=== PATIENT | male | born 1945 ===

== ENCOUNTER 2016-07-07 08:25 | Day surgery (SDC) | payer OTHER ==
[2016-06-19 15:04] VITALS: PULSE 88
[2016-06-27 10:48] VITALS: BMI 34.0
[2016-07-07] MEDS ORDERED: Midazolam 2 MG/2 ML VIAL ONE (10:24)
[2016-07-07] MEDS ORDERED: Propofol 10 mg/ml Inj (20 ML) ONE (10:24)
[2016-07-07] MEDS ORDERED: Lidocaine 2% Jelly (Uro-Jet) ONE (11:22)
[2016-07-07] MEDS ORDERED: Iohexol 240 (50 ml) ONE (11:22)
[2016-07-07] MEDS ORDERED: cefTRIAXone IV 1 gm in Dextros 50 ML IVPB ONE (11:22)
--- NOTE | 2016-07-07 12:09 | PCM.SURG1 ---
Surgeon's Initial Post Op Note - Surgeon's Notes Surgeon: Greg LOUIS Protein Specialist: NONE Pre-Operative Diagnosis: HX OF BLADDER TUMOR Operative Findings: ABNORMAL BLADDER MUCOSA Post-Operative Diagnosis: SAME Operation Performed: CYSTO, BILAT RTG PYELOGRAM. BLADDER BX'S AND FULG,. BN BX AND FULG Specimen/Specimens Removed: URINE. BLADDER BX'S Estimated Blood Loss: EBL {In ML}: 0 Blood Products Given: N/A Post-Op Condition: Good Date of Surgery/Procedure: 07/07/16 Time of Surgery/Procedure: 12:09
[2016-07-07] MEDS ORDERED: HYDROmorphone 0.5 mg/0.5 ml ISec IVP PRN (12:11)
[2016-07-07] MEDS ORDERED: Lactated Ringer's 1,000 ML IV SCH (12:15)
[2016-07-07 12:50] VITALS: O2SAT 100
[2016-07-07 13:32] VITALS: BP 142/70; PULSE 72; RESP 14; TEMP 98.7
--- NOTE | 2016-07-07 15:32 | RAD ---
PROCEDURE: Bilateral retrograde study HISTORY: HX. OF BLADDER TUMOR COMPARISON: None TECHNIQUE: Standard protocol for this study/examination. FINDINGS: Unremarkable collecting systems and ureters as visualized. Incidental finding(s): Right upper quadrant calculi likely gallstones. IMPRESSION: No significant or acute findings to account for/ related to the clinical presentation.
--- NOTE | 2016-07-09 22:05 | OP ---
PROCEDURE DATE: 07/07/2016 PREOPERATIVE DIAGNOSIS: History of bladder tumor. POSTOPERATIVE DIAGNOSES: History of bladder tumor. Abnormal bladder mucosa. PROCEDURE: Cystoscopy. Bilateral retrograde pyelogram. Multiple bladder biopsies and fulguration. Bladder neck biopsy and fulguration. OPERATING SURGEON: Dr. Ruthie Lujan DESCRIPTION OF PROCEDURE: As follows: The patient received perioperative antibiotics. Anesthesia w as administered by the anesthesiologist. The patient was placed in lithotomy position. Genitalia prepped and draped sterilely. Procedure was performed under video endoscopic control. A 22-Italian cystoscope sheath was introduced under direct vision. Urethra, prostate and bladder were inspected with 30-degree and 70-degree lenses. FINDINGS: There was no stricture of the anterior urethra. There was evidence of predominantly later al lobe prostatic hypertrophy. There was small hypertrophy of the prostate at the bladder neck. The bladder was noted to be mildly trabeculated. There was no bladder stone. There was no bladder diverticulum. There was abnormal mucosa located on the anterior wall at the midline and to the left of the midline in the area of the dome. This mucosa was slightly yellowish and slightly raised. There was no exoph ytic tumor. There were no papillary lesions. There is granularity of the mucosa. Multiple cold cup biopsies were obtained from the anterior wall ____ mucosa. Biopsies were obtained from the anterior wall as well as from the left anterior wall. Fulguration was performed with electr ocautery for hemostasis. Further biopsies were obtained from the trigone and the bladder neck and the posterior wall. Fulgura tion was performed with ball electrode and electrocautery for hemostasis. The biopsies of the posterior wall and trigone were of normal looking mucosa. There was slightly erythematous mucosa with mild contact bleeding of the mucosa located at the bladde r neck. This area was biopsied as well. Fulguration was performed with ball electrode. Hemostasis was complete. The bladder was reinspected with 70-degree lens and confirmed above findings. Prior to the biopsies, occlusive tip retrograde ureteropyelogram was performed. Iodinated contrast d ye was instilled via cone-tipped catheter into each ureteral orifice. Radiographs were obtained. There was no evidence of filling defect or obstruction within the ureters or collecting systems. Pos t-drainage film confirmed the above findings. There was good drainage noted on the post-drainage nakita m. The bladder was then drained. Cystoscope and sheath were removed. Ahn catheter was inserted. Bladder drainage was clear. Rectal examination/bimanual examination/exam under anesthesia was performed. There was evidence of p rostatic hypertrophy. Prostate was supple and smooth. There was no abnormal mass fixation or indura tion noted on bimanual examination. The patient tolerated the procedure without complication. The patient was returned to the supine pos ition. The patient was transferred to the recovery room in satisfactory condition. Ruthie Lujan MD cc: [id number] TT: 07/09/2016 22:05:11 sn
== END 2016-07-07 14:30 | disposition home or self-care (01) ==
LOC: C.SDS 08:25 → MERGE 10:30 → C.SDS 14:30
PROVIDERS: ATTEND Urology
DX: C67.3 Malignant neoplasm of anterior wall of bladder (principal); N40.1 Benign prostatic hyperplasia with lower urinary tract symptoms; N30.80 Other cystitis without hematuria
CPT/HCPCS: 52214; 74420; 87086; 88104; 88305; J0696; Q9966

== ENCOUNTER 2016-10-23 07:06 | Day surgery (SDC) | payer OTHER ==
[2016-06-19 15:04] VITALS: PULSE 88
[2016-10-23 07:20] VITALS: BMI 37.5
[2016-10-23] MEDS ORDERED: Lidocaine 2% Jelly (Uro-Jet) ONE (07:26)
[2016-10-23] MEDS ORDERED: Lactated Ringer's 500 ML IV ONE ×4 (07:33→10:00)
[2016-10-23] MEDS: cefTRIAXone IV 1 gm in Dextros 50 ML IVPB ONE ×2 (07:34→08:00)
[2016-10-23] MEDS ORDERED: Iohexol 240 (50 ml) ONE (07:45)
[2016-10-23] MEDS ORDERED: Propofol 10 mg/ml Inj (20 ML) ONE (07:58)
[2016-10-23 08:06] LABS: HEMOGLOBIN 12.3 g/dL (12.0-18.0)
[2016-10-23 08:09] LABS: INR 1.1; PROTHROMBIN TIME 12.8 SECONDS (9.7-12.2)
[2016-10-23] MEDS ORDERED: Esmolol 100 mg/10ml Inj IV ONE (08:44)
[2016-10-23] MEDS: HYDROmorphone 0.5 mg/0.5 ml ISec IVP PRN ×2 (08:52→09:18)
--- NOTE | 2016-10-23 08:58 | PCM.SURG1 ---
Surgeon's Initial Post Op Note - Surgeon's Notes Surgeon: roldan ravi Shoemaker Custom: none Type of Anesthesia: General LMA Pre-Operative Diagnosis: hx of bladder cancer Operative Findings: abnormal bladder mucosa Post-Operative Diagnosis: same Operation Performed: cysto,. bilat rtg pyelogram. bladder bx's and fulg. eua Specimen/Specimens Removed: urine, bladder bx's Estimated Blood Loss: EBL {In ML}: 0 Blood Products Given: N/A Date of Surgery/Procedure: 10/23/16 Time of Surgery/Procedure: 08:45
[2016-10-23 10:26] VITALS: BP 148/62; PULSE 101; RESP 20; TEMP 97.8; O2SAT 99
--- NOTE | 2016-10-23 12:09 | RAD ---
HISTORY: BLADDER TUMOR COMPARISON: No prior. FINDINGS: BOWEL: Normal. No obstruction. No free air. BONES: Constipation without fecal impaction or obstruction. OTHER FINDINGS: Calcifications right upper quadrant perhaps cholelithiasis. IMPRESSION: No acute findings related to/accounting for the clinical presentation.
[2016-10-23 12:13] LABS: SQUAMOUS EPITHIAL < 1 /hpf (0-5); URINE BILIRUBIN NEGATIVE (NEGATIVE); URINE BLOOD 1+ (NEGATIVE); URINE CLARITY Clear (Clear); URINE COLOR Straw (YELLOW); URINE GLUCOSE (UA) NORMAL (Normal); URINE LEUKOCYTE ESTERASE NEG Leu/uL (Negative); URINE NITRATE NEGATIVE (NEGATIVE); URINE PROTEIN NEGATIVE (NEGATIVE); URINE UROBILINOGEN NORMAL mg/dL (0.2-1.0)
--- NOTE | 2016-10-23 12:17 | RAD ---
PROCEDURE: Intraoperative Fluoroscopy. HISTORY: BLADDER TUMOR FINDINGS: Fluoroscopic assistance was provided for bilateral retrograde. Please from the current procedure: 9.0. Total fluoroscopic time (continuous mode) utilized during the procedure: 10.5 seconds.
--- NOTE | 2016-10-24 20:51 | OP ---
PROCEDURE DATE: 10/23/2016 PREOPERATIVE DIAGNOSIS: History of bladder carcinoma. POSTOPERATIVE DIAGNOSES: History of bladder carcinoma. Abnormal bladder mucosa. PROCEDURES: Cystoscopy. Bilateral retrograde pyelogram. Multiple bladder biopsies and fulguration. Exam under anesthesia. OPERATING SURGEON: Ruthie Lujan MD DESCRIPTION OF PROCEDURE: The patient received perioperative antibiotics. The patient was placed in lithotomy position. Anesthesia was provided by the anesthesiologist. A 22-[place] cystoscope sheath was introduced under direct vision. Urethra, prostate, and bladder were inspected with 30 degree and 70 degree lenses. FINDINGS: There was no stricture in the anterior urethra. There was evidence of lateral lobe prostatic hypertrophy, which was occlusive. There were no mucosal lesions within the urethra of the prostate. There was no bladder neck contracture. There was noted to be moderate bladder trabeculation. There was no bladder stone. The ureteral orifices were in normal position and shape. There are multiple areas of abnormal mucosa. Some of the areas were reddened and raised, although not papillary. Some of the areas were of an orange-pink color and granular and slightly raised. Occlusive tip retrograde ureteropyelogram was performed. Iodinated contrast *------* into ureteral orifice. The kidneys and ureters were viewed sequentially. Findings on retrograde pyelogram reveals no evidence of filling defect or obstruction within the uterus or collecting system. There was good drainage noted on post drainage film. The area of the abnormal mucosa were biopsied using Nikita biopsy forceps. Biopsies were obtained from the posterior wall as well as from the anterior wall as well as from the left anterior wall. *------* sent back for urologic examination and culture. Fulguration was performed with Ball electrode and electrocautery. Hemostasis was complete. The bladder was inspected with 70-degree lens to confirm the above findings. There was no residual mucosal lesion. Fulguration was performed for both hemostasis as well as possible tumor control. The bladder was then drained, cystoscope sheath was removed. Ahn catheter was inserted. Bladder drainage was clear. Exam under anesthesia was performed. There was no abnormal pelvic mass fixation or induration. Prostate was smooth and firm approximately 30 mL in size without fixation, induration, or nodularity. The patient tolerated the procedure without complication. Ruthie Lujan MD [facility] # [id number]
== END 2016-10-23 11:30 | disposition home or self-care (01) ==
LOC: C.SDS 07:06
PROVIDERS: ATTEND Urology
DX: N30.80 Other cystitis without hematuria (principal); Z85.51 Personal history of malignant neoplasm of bladder
CPT/HCPCS: 36415; 52204; 74000; 76000; 81001; 85014; 85018; 85610; 87086; 88104; 88305; C1758; J0696; J1170; J7120

== ENCOUNTER 2016-12-13 08:03 | Emergency (ER) | payer OTHER ==
[2016-12-13 08:03] VITALS: PULSE 88; BMI 37.5
[2016-12-13 08:28] VITALS: BP 133/83; PULSE 83; RESP 20; TEMP 98.2; O2SAT 98
[2016-12-13 09:41] LABS: BASO # 0.1 K/uL (0.0-0.2); BASO % 0.2 % (0.0-2.0); EOS # 0.1 K/uL (0.0-0.7); EOS % 0.3 % (0.0-4.0); HEMATOCRIT 37.5 % (35.0-51.0); LYMPH # 1.4 K/uL (1.0-4.3); LYMPH % 5.9 % (20.0-40.0); MEAN CELL VOLUME 83.2 fL (80.0-94.0); MEAN CORPUSCULAR HGB CONC 33.6 g/dL (33.0-37.0); MEAN PLATELET VOLUME 7.1 fL (7.2-11.7); MONO % 4.4 % (0.0-10.0); PLATELET COUNT 142 K/uL (130-400); RED CELL DISTRIBUTION WIDTH 17.2 % (11.5-14.5)
--- NOTE | 2016-12-13 09:46 | C.PDOC ---
History Of Present Illness 71 y/o male, with PMHx of bladder, esophageal ,and stomach CA, is sent to ED by Dr. Ruthie Lujan for evaluation of hematuria for the last 2 days. Note last chemotherapy was 2 days ago, pt has chemo every other week. Otherwise, denies abdominal pain, n/v/d, back pain, or fever. Time Seen by Provider: 12/13/16 08:11 Chief Complaint (Nursing): Male Genitourinary History Per: Patient History/Exam Limitations: no limitations Onset/Duration Of Symptoms: Days (2) Current Symptoms Are (Timing): Still Present Associated Symptoms: Urinary Symptoms. denies: Fever, Chills, Nausea, Vomiting , Diarrhea, Back Pain, Chest Pain Alleviating Factors: None Recent travel outside of the [place]: No Additional History Per: Patient Past Medical History Reviewed: Historical Data, Nursing Documentation, Vital Signs Vital Signs: Last Vital Signs Temp 98.2 F 12/13/16 08:19 Pulse 83 12/13/16 08:19 Resp 20 12/13/16 08:19 BP 133/83 12/13/16 08:19 Pulse Ox 98 12/13/16 16:52 - Medical History PMH: Atrial Fibrillation, Back Problems, Cardia Arrhythmia (as per pt:irregular heartbeats), HTN, Hypercholesterolemia Denies: Chronic Kidney Disease Surgical History: Endoscopy Denies: Pacemaker - [facility] Procedures DX ULTRASOUND-HEAD/NECK (09/28/14) ENTERAL INFUSION OF CONCENTRATED NUT. SUBSTANCES (11/09/14) ESOPHAGOGASTRODUODENOSCOPY [EGD] W/CLOSED BIOPSY (09/11/14) INJECT CA CHEMOTHER NEC (11/09/14) INJECT/INFUSE NEC (05/09/05) INSERTION OF TOTALLY IMPLANTABLE VASC ACCESS DEVIC (09/28/14) PERCUTANEOUS [ENDOSCOPIC] GASTROSTOMY [PEG] (09/28/14) RADIOTHERAPEUT PROC NEC (11/09/14) REMOV INTRALUM ESOPH FB (09/11/14) Family History: States: Unknown Family Hx - Social History Hx Alcohol Use: No Hx Substance Use: No - Immunization History Hx Tetanus Toxoid Vaccination: No Hx Influenza Vaccination: Yes (2015) Hx Pneumococcal Vaccination: No Review Of Systems Except As Marked, All Systems Reviewed And Found Negative. Constitutional: Negative for: Fever, Chills Cardiovascular: Negative for: Chest Pain, Palpitations Respiratory: Negative for: Cough, Shortness of Breath Gastrointestinal: Negative for: Nausea, Vomiting, Abdominal Pain, Diarrhea Genitourinary: Positive for: Hematuria. Negative for: Dysuria, Frequency, Penile Discharge, Penile Pain Musculoskeletal: Negative for: Back Pain Physical Exam - Physical Exam Appears: Non-toxic, No Acute Distress Skin: Warm, Dry, No Rash Head: Atraumatic, Normacephalic Eye(s): bilateral: Normal Inspection, EOMI Oral Mucosa: Moist Neck: Normal ROM, Supple Chest: Symmetrical Cardiovascular: Rhythm Regular, No Murmur Respiratory: Normal Breath Sounds, No Rales, No Rhonchi, No Wheezing Gastrointestinal/Abdominal: Soft, No Tenderness Back: No CVA Tenderness Extremity: Normal ROM, No Pedal Edema Neurological/Psych: Oriented x3, Normal Speech, Normal Cognition Gait: Steady ED Course And Treatment - Laboratory Results Result Diagrams: 12/13/16 09:37 12/13/16 09:37 Lab Interpretation: Abnormal O2 Sat by Pulse Oximetry: 98 (on RA) Pulse Ox Interpretation: Normal Progress Note: Blood work, UA ordered and reviewed. Pt was evaluated at bedside by Dr. Greg Lujan who requested patient be discharged home with prescription of Levaquine. Reassessment Condition: Improved - Physician Consult Information Physician Contacted: Ruthie Lujan Outcome Of Conversation: discharge on levaquin Medical Decision Making Medical Decision Making: Case discussed and patient evaluated in ED by Dr Greg Lujan On re-evaluation abdomen soft Disposition - Disposition Referrals: Ruthie Lujan MD [Staff Provider] - Disposition: HOME/ ROUTINE Disposition Time: 10:00 Condition: STABLE Additional Instructions: Follow up with Dr Eastman return to ED if any increase symptoms Prescriptions: Levofloxacin [Levaquin] 500 mg PO DAILY #7 tablet Instructions: Urinary Tract Infection in Men (ED), Acute Hematuria (ED) Forms: [employer] (Mongolian) - Clinical Impression Clinical Impression: Hematuria - PA / VEGETABLE THINNER / Resident Statement MD/DO has reviewed & agrees with the documentation as recorded. - Scribe Statement The provider has reviewed the documentation as recorded by the Scribe Sam Rajput All medical record entries made by the Scribe were at my direction and personally dictated by me. I have reviewed the chart and agree that the record accurately reflects my personal performance of the history, physical exam, medical decision making, and the department course for this patient. I have also personally directed, reviewed, and agree with the discharge instructions and disposition.
[2016-12-13 09:49] LABS: CHLORIDE 96 mmol/L (98-107); INR 2.2; POTASSIUM 3.8 mmol/L (3.6-5.2); SODIUM 138 mmol/L (132-148)
[2016-12-13 09:51] LABS: GFR AFRICAN-AMERICAN > 60
[2016-12-13 09:52] LABS: ALB/GLOB RATIO 1.5 (1.0-2.1); ALKALINE PHOSPHATASE 99 U/L (38-126); ALT/SGPT 30 U/L (21-72); AST/SGOT 24 U/L (17-59); BLOOD UREA NITROGEN 23 mg/dL (9-20); CALCIUM 9.4 mg/dl (8.6-10.4); CARBON DIOXIDE 25 mmol/L (22-30); GLUCOSE,RANDOM 88 mg/dL (75-110); TOTAL PROTEIN 7.1 g/dL (6.3-8.3)
[2016-12-13 09:53] LABS: RBC URINE 7606 /hpf (0-3); URINE BACTERIA FEW (<OCC); URINE BILIRUBIN NEGATIVE (NEGATIVE); URINE BLOOD 2+ (NEGATIVE); URINE COLOR Red (YELLOW); URINE GLUCOSE (UA) NORMAL (Normal); URINE KETONE NEGATIVE (NEGATIVE); URINE LEUKOCYTE ESTERASE TRACE Leu/uL (Negative); URINE PROTEIN 2+ mg/dL (NEGATIVE); URINE UROBILINOGEN NORMAL mg/dL (0.2-1.0); WBC URINE 425 /hpf (0-5)
[2016-12-13 10:30] LABS: NEUTROPHIL 80 % (50-75); TOTAL CELLS COUNTED 100
--- NOTE | 2016-12-13 21:10 | CON ---
DATE: 12/13/2016 UROLOGY CONSULTATION Urology consultation was requested by the [facility] Emergency Room. Urology consultation was filled by Dr. Ruthie Lujan. REASON FOR CONSULTATION: Hematuria. HISTORY OF PRESENT ILLNESS: The patient is a 71-year-old with hematuria. The patient is in otherwise fair health. The patient has had hematuria for the past 3 days. The patient has history of bladder carcinoma. He previously underwent transurethral resection of bladder tumor. He recently underwent chemotherapy and radiation therapy for high-grade bladder cancer. The patient has had cystoscopy approximately 5 months ago and then approximately 1 month ago. He was found to have no recurrence. He had 5 years of cystitis confirmed with biopsy. The patient also has significant other oncologic history including esophageal carcinoma. He has had previous radiation chemotherapy as well. On Sunday, 12/11, the patient developed gross hematuria. He has had hematuria yesterday and last night. He had clots as well. Last night, the patient noticed that urine turned production painter. May be after the third urine, urine turned yellow overnight. The patient reports that he has gross hematuria again this morning. There has been no fever. No rigors. No flank pain. No abdominal pain. The patient has increased urinary frequency. The patient voids with urinary stream in good control. Of note, the patient has had atrial fibrillation. He takes Coumadin. He stopped Coumadin today. PHYSICAL EXAMINATION GENERAL: The patient is a well-developed, well-nourished elderly male. The patient is awake and alert. ABDOMEN: Soft, nontender, and nondistended. No mass or organomegaly. GENITALIA: Without inflammation. ASSESSMENT: 1. Question hematuria, history of bladder carcinoma. 2. Possible urinary tract infection. Possible radiation cystitis. 3. Coagulopathy. RECOMMENDATION AND PLAN: Blood test pending. Further therapy to follow according to the patient's clinical course. We will discuss with ER physician. We will discuss with the patient's oncologist. I have discussed the matter with the patient as well. Ruthie Lujan MD cc: Ruthie Lujan MD
== END 2016-12-13 10:11 | disposition home or self-care (01) ==
LOC: C.ER 08:03
DX: R31.9 Hematuria, unspecified (principal)